=== PATIENT | female | born 1965 | race Two or more races ===

== ENCOUNTER 2024-06-10 10:25 | Emergency (ER) | payer OTHER ==
[~2024-06-10] VITALS: Ht 154.9 cm; Wt 61.0 kg
--- NOTE | 2024-06-10 10:52 | ED.PDOC ---
History of Present Illness HPI Comments 59F BIBA from home and prior Hx of HTN which may be associated to the c/c of HTN. EMS report that the pt was picked up from work and "quadrupled" her HTN medication by taking 2 last night and 2 this morning, Pt on scene was 206/130. 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 Pt reports on having symptoms today at work w/ her BP being high, and feeling dizzy. Pain type of a 3/10 on scene but denies any now. PMHx of HTN and Miscarriage x2. Family Hx of Cancer. Denies chills, fever, N/V/D, SOB, CP or other associated symptom's, modifiers, or recent injuries or sick contact at this time. 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, Medications, Allergies Allergies: Coded Allergies: NO KNOWN ALLERGIES (Unverified , 06/10/24) Information Source: Patient, Emergency Med Personnel Mode of Arrival: EMS Severity: Moderate Timing: Minutes Duration: Since onset, Minutes Prehospital treatment: None Past Medical History PAST MEDICAL HISTORY: HTN Past Medical History (Other): misscariges x2 Surgical History: Denies all surgeries CLIPPER MACHINE History: No Pertinent CLIPPER MACHINE History Family History Family History: Reviewed,noncontributory to illness, Family hx of Cancer Social History Smoker: Non-Smoker Alcohol: Denies ETOH Use Drugs: Denies Drug Use Lives In: Home Constitutional: denies: chills, diaphoresis, fatigue, fever, malaise, sweats, weakness, others EENTM: denies: blurred vision, double vision, ear bleeding, ear discharge, ear drainage, ear pain, ear ringing, eye pain, eye redness, hearing loss, mouth pain, mouth swelling, nasal discharge, nose bleeding, nose congestion, nose pain, photophobia, tearing, throat pain, throat swelling, voice changes, others Respiratory: denies: cough, hemoptysis, orthopnea, SOB at rest, shortness of breath, SOB with excertion, stridor, wheezing, others Cardiovascular: denies: chest pain, dizzy spells, diaphoresis, Dyspnea on exertion, edema, irregular heart beat, left arm pain, lightheadedness, palpitations, PND, syncope, others Gastrointestinal: denies: abdomen distended, abdominal pain, blood streaked bowels, constipated, diarrhea, dysphagia, difficulty swallowing, hematemesis, melena, nausea, poor appetite, poor fluid intake, rectal bleeding, rectal pain, vomiting, others Genitourinary: denies: abnormal vagina bleeding, burning, dyspareunia, dysuria, flank pain, frequency, hematuria, incontinence, pain, , vagina discharge, urgency, others Neurological: reports: dizziness; denies: fainting, headache, left sided numbness, left sided weakness, numbness, paresthesia, pre-existing deficit, right sided numbness, right sided weakness, seizure, speech problems, tingling, tremors, weakness, others Musculoskeletal: denies: back pain, gout, joint pain, joint swelling, muscle pain, muscle stiffness, neck pain, others Integumetry: denies: bruises, change in color, change in hair/nails, dryness, laceration, lesions, lumps, rash, wounds, others Allergic/Immunocompromised: denies: Difficulty Healing, Frequent Infections, Hives, Itching, others Hematologic/Lymphatic: denies: anemia, blood clots, easy bleeding, easy bruising, swollen glands, others Endocrine: denies: excessive hunger, excessive sweating, excessive thirst, excessive urination, flushing, intolerance to cold, intolerance to heat, unexplained weight gain, unexplained weight loss, others Psychiatric: denies: anxiety, bipolar disorder, depression, hopeless, panic disorder, schizophrenia, sleepless, suicidal, others All Other Systems: Reviewed and Negative Physical Exam General Appearance: No Apparent Distress HEENT: Normal ENT Inspection, Pharynx Normal, TMs Normal Neck: Full Range of Motion, Non-Tender, Normal, Normal Inspection Respiratory: Chest Non-Tender, Lungs Clear, No Accessory Muscle Use, No Respiratory Distress, Normal Breath Sounds Cardiovascular: No Edema, No JVD, No Murmur, No Gallop, Normal Peripheral Pulses, Regular Rate/Rhythm Breast Exam: Deferred Gastrointestinal: No Organomegaly, Non Tender, No Pulsatile Mass, Normal Bowel Sounds, Soft Genitalia: Deferred Pelvic: Deferred Rectal: Deferred Extremities: No calf tenderness, Normal capillary refill, Normal inspection, Normal range of motion, Non-tender, No pedal edema Musculoskeletal : Apperance: Normal Neurologic: Alert, supervisor post wave II-XII nml as Tested, No Motor Deficits, Normal Affect, Normal Mood, No Sensory Deficits Cerebellar Function: Normal Reflexes: Normal Skin: Dry, Normal Color, Warm Lymphatic: No Adenopathy Was a procedure done? Was a procedure done?: No EKG EKG : Pulse Rate (adult): 108 [place]: Normal Cardiac Rhythm: ST Block: None Hypertrophy: None ST: Normal Differential Dx Considerations may include: Hypertensive urgency, acute anxiety X-Ray, Labs, Meds, VS Vital Signs Date Time Temp Pulse Resp B/P (MAP) Pulse Ox O2 Delivery O2 Flow Rate FiO2 06/10/24 11:41 88 16 184/106 (132) 99 06/10/24 11:07 212/95 06/10/24 11:05 108 06/10/24 10:55 108 06/10/24 10:54 98.5 106 18 206/130 (155) 98 Current Medications Medications (Trade) Dose Ordered Sig/Faraz Route Start Time Stop Time Status Last Admin Clonidine HCl (Catapres Tablet) 0.1 mg ONCE ONCE PO 06/10/24 11:00 06/10/24 11:01 DC 06/10/24 11:07 The patient was given clonidine 0.1 mg by mouth for the elevated blood pressure We did explain to the patient that she does need to decrease her stress level The patient will follow up with the primary care doctor The patient can be safely discharged after evaluating her blood pressure Time of 1ST Reevaluation: 11:05 Reevaluation 1ST: Unchanged Patient Education/Counseling: Diagnosis, Treatment, Prognosis, Need For Follow Up Family Education/Counseling: No Family Present Departure 1 Departure Time of Disposition: 11:49 Impression: Primary Impression: Hypertensive urgency Disposition: 01 HOME / SELF CARE / HOMELESS Condition: Fair Discharged With: Self Critical Care Note Critical Care Time?: No Stability Stability form required: No Heart Score Heart Score: Heart Score Response (Comments) Value History N/A 0 EKG N/A 0 Age N/A 0 Risk Factors N/A 0 Troponin N/A 0 Total 0 I personally scribed for LIEN BANDA MD ([email or web address]) on 06/10/24 at 10:52. Electronically submitted by Deep Glover ([email or web address]). I personally scribed for LIEN BANDA MD ([email or web address]) on 06/10/24 at 11:05. Electronically submitted by Deep Glover ([email or web address]). LIEN BANDA MD Jun 10, 2024 10:52
[2024-06-10] MEDS: cloNIDine HCL 0.1 MG TAB PO ONE (11:07)
[2024-06-10 11:41] VITALS: BP 184/106
[2024-06-10 12:21] VITALS: PULSE 88; RESP 16; O2SAT 99
--- NOTE | 2024-06-11 13:46 | ECG ---
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
== END 2024-06-10 12:22 | disposition home or self-care (01) ==
LOC: EDBD 10:25 → ER 10:25
DX: I16.0 Hypertensive urgency (principal)
CPT/HCPCS: 93005